=== PATIENT | male | born 1985 | race Two or more races ===

== ENCOUNTER 2018-10-31 12:34 | Emergency (ER) | payer SELFPAY ==
[~2018-10-31] VITALS: Ht 177.8 cm; Wt 82.6 kg
[2018-10-31 12:48] VITALS: BP 122/73
[2018-10-31] MEDS ORDERED: FLUORESCEIN SODIUM OPHTH 1 EA STRIP OP ONE (13:00)
[2018-10-31] MEDS ORDERED: TETRACAINE HCL/PF 0.5% UD 2 ML BOTTLE LEFTEYE ONE (13:00)
== END 2018-10-31 13:02 | disposition home or self-care (01) ==
LOC: ER 12:34
DX: H57.12 Ocular pain, left eye (principal)
CPT/HCPCS: Z7502